=== PATIENT | male | born 1975 | race Caucasian/White ===

== ENCOUNTER 2022-01-19 04:45 | Inpatient (IN) | payer MEDICAID ==
[~2022-01-19] VITALS: Ht 167.6 cm; Wt 67.1 kg
[2022-01-19 06:30] LABS: CHLORIDE 103 mEq/L (98-107)
[2022-01-19 06:40] LABS: HEMATOCRIT. 23.7 % (42.0-52.0); MEAN CORPUSCULAR HEMOGLOBIN 29.4 pg (28.0-32.0); MEAN CORPUSCULAR VOLUME 87.5 fL (80.0-94.0); MEAN PLATELET VOLUME 8.1 fl (7.4-10.4); PLATELET 294 x1000/uL (130-400); RED BLOOD CELL COUNT 2.71 mill/uL (4.7-6.1)
[2022-01-19 06:46] LABS: ETHANOL BLOOD < 10 mg/dL
[2022-01-19 08:24] LABS: CLARITY URINE CLEAR (CLEAR); COLOR URINE YELLOW (YELLOW); KETONES URINE TRACE (NEGATIVE); LEUKOCYTE ESTERASE URINE NEGATIVE (NEGATIVE); NITRITE URINE NEGATIVE (NEGATIVE); OCCULT BLOOD URINE 2+ (NEGATIVE); PROTEIN URINE 4+ (NEGATIVE); SPECIFIC GRAVITY URINE 1.012 (1.005-1.030); UROBILINOGEN URINE 0.2 E.U./dL (0.2-1.0)
[2022-01-19] MEDS ORDERED: ACETAMINOPHEN 325MG TABLET PO ONE (08:30)
[2022-01-19 08:38] LABS: *AMPHETAMINES SCREEN URINE NEGATIVE (NEGATIVE); *BARBITURATES SCREEN URINE NEGATIVE (NEGATIVE); *BENZODIAZEPINES SCREEN URINE NEGATIVE (NEGATIVE); *COCAINE SCREEN URINE NEGATIVE (NEGATIVE); CANNABINOID URINE SCREEN PRESUMTIVE POSITIVE (NEGATIVE); METHADONE URINE SCREEN NEGATIVE (NEGATIVE); OPIATES URINE SCREEN PRESUMTIVE POSITIVE (NEGATIVE); PHENCYCLIDINE URINE SCREEN PRESUMTIVE POSITIVE (NEGATIVE)
[2022-01-19 10:34] LABS: PLATELET ESTIMATE NORMAL
[2022-01-19] MEDS ORDERED: ONDANSETRON HCL 4MG/2ML INJ IV PRN (11:30)
[2022-01-19] MEDS: ACETAMINOPHEN 325MG TABLET PO PRN (12:28)
[2022-01-19] MEDS: NIFEDIPINE XL 60MG TAB PO SCH (12:29)
[2022-01-19] MEDS ORDERED: METHADONE HCL 10MG TABLET PO SCH (12:30)
[2022-01-19 13:12] LABS: HEPATITIS B SURFACE ANTIGEN NEGATIVE
[2022-01-19] MEDS ORDERED: HYDRALAZINE HCL 100MG TABLET PO PRN (14:30)
[2022-01-19] MEDS: HYDROCODONE/ACETAMINOPHEN 5/325MG TABLET PO PRN ×2 (14:57→22:11)
[2022-01-19] MEDS: LORAZEPAM 1MG TABLET PO PRN ×2 (14:57→22:10)
[2022-01-19] MEDS: HYDRALAZINE HCL 100MG TABLET PO SCH (22:08)
[2022-01-19 23:30] VITALS: BP 143/73
[2022-01-19 23:40] VITALS: BP 143/73
[2022-01-20 04:20] VITALS: BP 148/81
[2022-01-20 06:32] LABS: BASOPHILS % 1.1 % (0.0-2.0); EOSINOPHILS % 2.4 % (0.0-5.0); HEMATOCRIT. 23.6 % (42.0-52.0); HEMOGLOBIN. 8.3 g/dL (14.0-18.0); LYMPHOCYTES % 15.7 % (20.0-50.0); MEAN CORPUSCULAR HEMOGLOBIN 29.7 pg (28.0-32.0); MEAN CORPUSCULAR VOLUME 84.7 fL (80.0-94.0); MEAN PLATELET VOLUME 8.4 fl (7.4-10.4); MONOCYTES % 14.3 % (2.0-8.0); NEUTROPHILS % 66.5 % (40.0-76.0); PLATELET 297 x1000/uL (130-400); RED BLOOD CELL COUNT 2.79 mill/uL (4.7-6.1); RED CELL DISTRIBUTION WIDTH 14.8 % (11.6-14.6)
[2022-01-20 08:00] VITALS: BP 139/80
[2022-01-20] MEDS ORDERED: METH-819 PO (08:48)
[2022-01-20] MEDS: HYDRALAZINE HCL 100MG TABLET PO SCH ×2 (09:24→21:00)
[2022-01-20] MEDS: NIFEDIPINE XL 60MG TAB PO SCH (09:25)
[2022-01-20] MEDS: HYDROCODONE/ACETAMINOPHEN 5/325MG TABLET PO PRN ×3 (10:05→21:18)
[2022-01-20 12:00] VITALS: BP 126/104
[2022-01-20] MEDS: LORAZEPAM 1MG TABLET PO PRN (14:01)
[2022-01-20] MEDS ORDERED: NALOXONE HCL 0.4MG/ML VIAL IV PRN (15:00)
[2022-01-20] MEDS ORDERED: METHADONE HCL 10MG TABLET PO NR (15:15)
[2022-01-20 16:00] VITALS: BP 132/77
[2022-01-20] MEDS ORDERED: HYDR-4134 PO (16:40)
[2022-01-20] MEDS ORDERED: FERR325T6 PO (16:40)
[2022-01-20] MEDS ORDERED: AMLO10TA80 PO (16:41)
[2022-01-20] MEDS ORDERED: FAMO20TA8 PO (16:41)
[2022-01-20] MEDS ORDERED: ASPI-1406 PO (16:42)
[2022-01-20 20:00] VITALS: BP 131/77
[2022-01-20] MEDS ORDERED: POTASSIUM CHLORIDE 20MEQ TABLET SR PO NR (23:15)
[2022-01-21] VITALS: BP 134/72
[2022-01-21] MEDS: LORAZEPAM 1MG TABLET PO PRN (00:40)
[2022-01-21 04:00] VITALS: BP 148/91
[2022-01-21 08:03] VITALS: BP 137/74
[2022-01-21] MEDS: NIFEDIPINE XL 60MG TAB PO SCH (08:30)
[2022-01-21] MEDS: HYDRALAZINE HCL 100MG TABLET PO SCH ×2 (08:30→20:54)
[2022-01-21] MEDS ORDERED: METHADONE HCL 10MG TABLET PO SCH (10:00)
[2022-01-21] MEDS: METHADONE HCL 10MG TABLET PO SCH (10:40)
[2022-01-21 12:00] VITALS: BP 138/74
[2022-01-21 16:00] VITALS: BP 140/80
[2022-01-21 20:00] VITALS: BP 133/76
[2022-01-21] MEDS: ZOLPIDEM TARTRATE 5MG TABLET PO PRN (22:00)
[2022-01-22] VITALS: BP 139/78
[2022-01-22 04:00] VITALS: BP 143/77
[2022-01-22 06:52] LABS: HEMATOCRIT. 23.2 % (42.0-52.0); MEAN CORPUSCULAR HEMOGLOBIN 29.6 pg (28.0-32.0); MEAN CORPUSCULAR VOLUME 86.4 fL (80.0-94.0); MEAN PLATELET VOLUME 8.1 fl (7.4-10.4); PLATELET 294 x1000/uL (130-400); RED BLOOD CELL COUNT 2.69 mill/uL (4.7-6.1); RED CELL DISTRIBUTION WIDTH 14.8 % (11.6-14.6)
[2022-01-22 08:00] VITALS: BP 138/80
[2022-01-22] MEDS: HYDRALAZINE HCL 100MG TABLET PO SCH ×2 (09:26→20:30)
[2022-01-22] MEDS: NIFEDIPINE XL 60MG TAB PO SCH (09:26)
[2022-01-22] MEDS: METHADONE HCL 10MG TABLET PO SCH (09:26)
[2022-01-22 10:31] LABS: PLATELET ESTIMATE NORMAL
[2022-01-22 12:00] VITALS: BP 131/77
[2022-01-22 16:30] VITALS: BP 133/82
[2022-01-22 20:00] VITALS: BP 101/58
[2022-01-22] MEDS: ZOLPIDEM TARTRATE 5MG TABLET PO PRN (22:25)
[2022-01-23] VITALS: BP 128/74
[2022-01-23 04:00] VITALS: BP 125/67
[2022-01-23 08:00] VITALS: BP 145/94
[2022-01-23] MEDS: NIFEDIPINE XL 60MG TAB PO SCH (09:23)
[2022-01-23] MEDS: HYDRALAZINE HCL 100MG TABLET PO SCH ×2 (09:24→21:29)
[2022-01-23] MEDS: METHADONE HCL 10MG TABLET PO SCH (09:25)
[2022-01-23 12:00] VITALS: BP 139/76
[2022-01-23 16:00] VITALS: BP 142/76
[2022-01-23 20:00] VITALS: BP 122/67
[2022-01-23] MEDS: ZOLPIDEM TARTRATE 5MG TABLET PO PRN (22:41)
[2022-01-24] VITALS: BP 112/58
[2022-01-24 04:00] VITALS: BP 120/75
[2022-01-24 06:50] LABS: EOSINOPHILS % 9.7 % (0.0-5.0); HEMATOCRIT. 22.8 % (42.0-52.0); HEMOGLOBIN. 7.5 g/dL (14.0-18.0); MEAN CORPUSCULAR HEMOGLOBIN 29.2 pg (28.0-32.0); MEAN CORPUSCULAR VOLUME 88.7 fL (80.0-94.0); MEAN PLATELET VOLUME 7.8 fl (7.4-10.4); MONOCYTES % 14.4 % (2.0-8.0); NEUTROPHILS % 46.9 % (40.0-76.0); PLATELET 307 x1000/uL (130-400); RED BLOOD CELL COUNT 2.58 mill/uL (4.7-6.1); RED CELL DISTRIBUTION WIDTH 14.5 % (11.6-14.6)
[2022-01-24 08:00] VITALS: BP 131/63
[2022-01-24] MEDS: NIFEDIPINE XL 60MG TAB PO SCH (08:10)
[2022-01-24] MEDS: METHADONE HCL 10MG TABLET PO SCH (08:10)
[2022-01-24] MEDS: HYDRALAZINE HCL 100MG TABLET PO SCH ×2 (08:10→21:02)
[2022-01-24 11:43] VITALS: BP 105/60
[2022-01-24 15:43] VITALS: BP 133/74
[2022-01-24 20:00] VITALS: BP 137/71
[2022-01-24] MEDS: ZOLPIDEM TARTRATE 5MG TABLET PO PRN (23:47)
[2022-01-25] VITALS: BP 133/77
[2022-01-25 04:00] VITALS: BP 119/64
[2022-01-25 08:00] VITALS: BP 142/79
[2022-01-25] MEDS: METHADONE HCL 10MG TABLET PO SCH (08:15)
[2022-01-25] MEDS: NIFEDIPINE XL 60MG TAB PO SCH (08:15)
[2022-01-25] MEDS: HYDRALAZINE HCL 100MG TABLET PO SCH ×2 (08:15→21:37)
[2022-01-25 12:00] VITALS: BP 128/59
[2022-01-25 15:36] VITALS: BP 136/71
[2022-01-25 20:00] VITALS: BP 147/62
[2022-01-25] MEDS: ZOLPIDEM TARTRATE 5MG TABLET PO PRN (23:49)
[2022-01-26] VITALS: BP 119/61
[2022-01-26 04:00] VITALS: BP 131/66
[2022-01-26 08:00] VITALS: BP 144/81
[2022-01-26 08:12] LABS: BASOPHILS % 0.6 % (0.0-2.0); EOSINOPHILS % 9.7 % (0.0-5.0); HEMATOCRIT. 23.1 % (42.0-52.0); HEMOGLOBIN. 7.6 g/dL (14.0-18.0); LYMPHOCYTES % 14.8 % (20.0-50.0); MEAN CORPUSCULAR HEMOGLOBIN 29.2 pg (28.0-32.0); MEAN CORPUSCULAR VOLUME 88.2 fL (80.0-94.0); MONOCYTES % 11.9 % (2.0-8.0); PLATELET 329 x1000/uL (130-400); RED BLOOD CELL COUNT 2.62 mill/uL (4.7-6.1)
[2022-01-26] MEDS: METHADONE HCL 10MG TABLET PO SCH (09:47)
[2022-01-26] MEDS: NIFEDIPINE XL 60MG TAB PO SCH (09:48)
[2022-01-26 12:00] VITALS: BP 144/81
[2022-01-26] MEDS: HYDRALAZINE HCL 100MG TABLET PO SCH ×2 (12:15→20:54)
[2022-01-26] MEDS: ACETAMINOPHEN 325MG TABLET PO PRN ×2 (12:49→18:19)
[2022-01-26 16:00] VITALS: BP 144/81
[2022-01-26 20:00] VITALS: BP 185/90
[2022-01-27] VITALS: BP 149/88
[2022-01-27 04:00] VITALS: BP 123/71
[2022-01-27 08:00] VITALS: BP 121/73
[2022-01-27] MEDS: NIFEDIPINE XL 60MG TAB PO SCH (09:47)
[2022-01-27] MEDS: HYDRALAZINE HCL 100MG TABLET PO SCH ×2 (09:47→21:00)
[2022-01-27] MEDS: METHADONE HCL 10MG TABLET PO SCH (11:16)
[2022-01-27 12:00] VITALS: BP 133/83
[2022-01-27 15:55] VITALS: BP 135/80
[2022-01-27 20:00] VITALS: BP 102/63
[2022-01-27] MEDS: ZOLPIDEM TARTRATE 5MG TABLET PO PRN (22:02)
[2022-01-28] VITALS: BP 112/68
[2022-01-28 04:01] VITALS: BP 150/94
[2022-01-28] MEDS: ACETAMINOPHEN 325MG TABLET PO PRN ×2 (05:48→17:09)
[2022-01-28 08:00] VITALS: BP 185/103
[2022-01-28] MEDS: NIFEDIPINE XL 60MG TAB PO SCH (09:00)
[2022-01-28] MEDS: HYDRALAZINE HCL 100MG TABLET PO SCH ×2 (09:00→20:10)
[2022-01-28] MEDS: METHADONE HCL 10MG TABLET PO SCH (09:10)
[2022-01-28 10:28] LABS: BASOPHILS % 0.5 % (0.0-2.0); EOSINOPHILS % 1.3 % (0.0-5.0); HEMATOCRIT. 23.9 % (42.0-52.0); LYMPHOCYTES % 8.4 % (20.0-50.0); MEAN CORPUSCULAR VOLUME 87.1 fL (80.0-94.0); MEAN PLATELET VOLUME 7.8 fl (7.4-10.4); NEUTROPHILS % 80.8 % (40.0-76.0); PLATELET 309 x1000/uL (130-400); RED BLOOD CELL COUNT 2.74 mill/uL (4.7-6.1); RED CELL DISTRIBUTION WIDTH 15.2 % (11.6-14.6)
[2022-01-28 12:00] VITALS: BP 110/71
[2022-01-28 16:00] VITALS: BP 136/91
[2022-01-28] MEDS ORDERED: SODIUM CHLORIDE 0.9% 1,000 ML IV SCH (18:45)
[2022-01-28 20:00] VITALS: BP 124/84
[2022-01-28] MEDS: ZOLPIDEM TARTRATE 5MG TABLET PO PRN (22:44)
[2022-01-29] VITALS: BP 139/87
[2022-01-29 04:00] VITALS: BP 151/86
== END 2022-01-29 06:02 | disposition left against medical advice (07) | DRG 470 ==
LOC: ER 04:45 → EDBD 04:45 → 8WST 10:07 → EDBEDREQ 10:11 → ENRESERV 22:02
PROVIDERS: ADMIT Internal Medicine; ATTEND Internal Medicine
PROC: 5A1D70Z Performance of Urinary Filtration, Intermittent, Less than 6 Hours Per Day (ICD-10-PCS; principal; 2022-01-19)
PROC: 5A1D70Z Performance of Urinary Filtration, Intermittent, Less than 6 Hours Per Day (ICD-10-PCS; 2022-01-20)
PROC: 5A1D70Z Performance of Urinary Filtration, Intermittent, Less than 6 Hours Per Day (ICD-10-PCS; 2022-01-22)
PROC: 5A1D70Z Performance of Urinary Filtration, Intermittent, Less than 6 Hours Per Day (ICD-10-PCS; 2022-01-24)
PROC: 5A1D70Z Performance of Urinary Filtration, Intermittent, Less than 6 Hours Per Day (ICD-10-PCS; 2022-01-26)
DX: I12.0 Hypertensive chronic kidney disease with stage 5 chronic kidney disease or end stage renal disease (principal); E87.2 Acidosis; E44.0 Moderate protein-calorie malnutrition; E83.51 Hypocalcemia; E87.1 Hypo-osmolality and hyponatremia; D63.1 Anemia in chronic kidney disease; N18.6 End stage renal disease; I16.0 Hypertensive urgency; Z20.822 Contact with and (suspected) exposure to COVID-19; B19.20 Unspecified viral hepatitis C without hepatic coma; I51.7 Cardiomegaly; Z53.29 Procedure and treatment not carried out because of patient's decision for other reasons; F16.90 Hallucinogen use, unspecified, uncomplicated; F11.20 Opioid dependence, uncomplicated; F19.10 Other psychoactive substance abuse, uncomplicated; Z91.15 Patient's noncompliance with renal dialysis; Z99.2 Dependence on renal dialysis; Z68.23 Body mass index [BMI] 23.0-23.9, adult; Z71.51 Drug abuse counseling and surveillance of drug abuser; D64.9 Anemia, unspecified
CPT/HCPCS: 36415; 71045; 80048; 80053; 80305; 80320; 81003; 84484; 85025; 86705; 86706; 86709; 86803; 87340; 93005; 93306; 99291; A6261; U0003; U0005; G0480